=== PATIENT | male | born 1990 | race Caucasian/White ===

== ENCOUNTER 2016-12-24 07:37 | Emergency (ER) | payer BC, OTHER ==
[~2016-12-24] VITALS: Ht 175.3 cm; Wt 72.5 kg
[2016-12-24 07:39] VITALS: TEMP 36.7; Ht 175.3 cm; Wt 72.5 kg
--- NOTE | 2016-12-24 08:04 | EMERGENCY ROOM VISIT NOTE ---
History Report prepared by [facility]: Peri Weller Under the Supervision of: Dr. Wally Christopher M.D. First contact with patient: 07:46 Chief Complaint: OTHER COMPLAINT Stated Complaint: BLURRED/DOUBLE VISION History of Present Illness The patient is a 26 year old male who presents to the Emergency Room with complaints of constant visual symptoms beginning last night. He describes blurry and double vision since last night. He went to bed and woke up with the same symptoms. He states that they have improved slightly throughout the morning , but he is still having double vision. The patient notes that his symptoms resolve if he closes either eye - it does not matter which eye he closes. He has never experienced these symptoms before. He wears glasses and states that he has these symptoms with or without his glasses. He denies any recent changes to his glasses prescription. The patient denies any recent trauma or injury to his head. He also denies any recent illness or increase in alcohol consumption. He denies any drug use. The patient reports that for the past 2-3 years he has had "low energy." He has been more fatigued than usual lately and notes that yesterday he put off cutting the grass, which is very unusual for him. He has a family history of MS. The patient states that his mother and grandmother have MS and state that their symptoms began with similar visual symptoms. Source of History: patient, spouse/significant other Onset: last night Position: eye (bilateral) Quality: other (blurry/double) Timing: constant Modifying Factors (Relieving): other (closing one eye) Associated Symptoms: + fatigue Review of Systems All systems have been listed, reviewed, and are negative other than those previously mentioned. Please see Additional Medical History Sheet. Past Medical & Surgical Medical Problems: (1) No significant active problems Family History FHx: multiple sclerosis Social History Smoking Status: Never Smoker Alcohol Use: occasionally Marital Status: Housing Status: lives with significant other Occupation Status: employed Current/Historical Medications Miscellaneous Medications None (Patient States No Home Meds) Allergies Coded Allergies: No Known Allergies (Unverified , 12/24/16) Physical Exam Vital Signs Date Time Temp Pulse Resp B/P (MAP) Pulse Ox O2 Delivery O2 Flow Rate FiO2 12/24/16 10:55 22 15 110/71 99 Room Air 12/24/16 08:52 50 15 119/63 100 Room Air 12/24/16 07:39 36.7 66 18 130/85 99 Room Air Physical Exam GENERAL: Patient awake, alert, oriented x 3. Patient follows commands. Patient does not appear toxic. Patient is adequately hydrated and well- nourished. SKIN: No erythema, pallor, cyanosis or rash HEENT: Normal head, pupils equal, reactive to light and accommodation. Small scar on his left TM. Oral cavity and posterior pharynx appear normal. Neck: Without adenopathy, no neck vein distention. LUNGS: Clear to auscultation. No wheezes, no rales, no rhonchi. HEART: No murmurs. No gallops. No rubs ABDOMEN: No masses, no rebound, no hepatomegaly or splenomegaly. EXTREMITIES: No signs of trauma or infection. NEUROLOGIC: Cranial nerves II-XII within normal limits. No gross motor sensory function deficits. Medical Decision & Procedures ER Provider Diagnostic Interpretation: Radiology results as stated below per my review and radiologist interpretation: BRAIN COMBO FOR MS HISTORY: Mental status change diplopia MS? TECHNIQUE: Multiplanar multisequence MRI of the brain was performed both before and after the intravenous administration of contrast. COMPARISON STUDY: None. FINDINGS: There are no areas of restricted diffusion to suggest acute infarction. The midline structures are intact. The paranasal sinuses are clear. The mastoid air cells are clear. The ventricles and sulci are within normal limits for age. There is no mass, hematoma, midline shift. The major vascular flow-voids at the skull base are well maintained. Postcontrast sequences show no areas of abnormal enhancement. There is a small focus of increased signal right frontal lobe and right periventricular location. No additional foci are identified. There are no significant foci of increased signal within the optic radiations. Sella and parasellar region are within normal limits. Internal auditory canals are symmetric. IMPRESSION: Small focus of increased signal right frontal lobe. 2. Study is otherwise negative 3. No significant evidence for a demyelinating disorder The above report was generated using voice recognition software. It may contain grammatical, syntax or spelling errors. Electronically signed by: Shady Sullivan M.D. 12/24/2016 10:43 AM Dictated Date/Time: 12/24/2016 10:38 AM Laboratory Results 12/24/16 08:05 12/24/16 08:05 Test 12/24/16 08:05 Red Blood Count 4.92 M/uL (4.7-6.1) Mean Corpuscular Volume 87.8 fL (80-100) Mean Corpuscular Hemoglobin 31.9 pg (25-34) Mean Corpuscular Hemoglobin Concent 36.3 g/dl (32-36) RDW Standard Deviation 39.7 fL (36.4-46.3) RDW Coefficient of Variation 12.5 % (11.5-14.5) Mean Platelet Volume 9.5 fL (7.4-10.4) Anion Gap 3.0 mmol/L (3-11) Est Creatinine Clear Calc Drug Dose 115.8 ml/min Estimated GFR () 125.8 Estimated GFR (Non- 108.5 BUN/Creatinine Ratio 14.0 (10-20) Calcium Level 9.1 mg/dl (8.5-10.1) Troponin I < 0.015 ng/ml (0-0.045) Laboratory results as stated above per my review. ECG Indication: other Rate (beats per minute): 58 Rhythm: sinus bradycardia Findings: no acute ischemic change, no ectopy, other (rightward axis) ED Course 0746: Past medical records reviewed. The patient was evaluated in room B2. A complete history and physical examination was performed. 1055: I reassessed the patient at this time. He is feeling better and resting comfortably. I discussed the results and treatment plan with the patient. I answered all pertaining questions that he had. He expressed understanding and verbalized agreement. The patient will be discharged home. Medical Decision Differential diagnoses includes diplopia, metabolic disorder, MS, neoplasm. 26-year-old male here with diplopia. There is a strong family history of MS and both the patient and his are concerned about that disease process. Multiple labs and imaging were performed. Please see above. At this time, there appears to be no evidence for MS although that diagnosis could be elusive. I do not believe the patient requires admission but I would like the patient be followed up by his family physician and possibly a neurologist if symptoms persist. The patient was encouraged to avoid driving while he has any visual problem. The patient's potassium is slightly low. He was instructed to increase potassium in his diet. Medication Reconcilliation Current Medication List: was personally reviewed by me Blood Pressure Screening Patient's blood pressure: Normal blood pressure Impression Primary Impression: Diplopia Additional Impression: Hypokalemia Scribe Attestation The scribe's documentation has been prepared under my direction and personally reviewed by me in its entirety. I confirm that the note above accurately reflects all work, treatment, procedures, and medical decision making performed by me. Departure Information Dispostion Home / Self-Care Referrals No Doctor, Assigned (PCP) Patient Instructions ED Diet High Potassium, [facility] Additional Instructions Follow-up with your family physician within the next 7 days. Return here sooner if your double vision gets worse. Do not drive if you have double vision. Increase potassium in your diet. Problem Qualifiers
[2016-12-24 08:22] LABS: HEMATOCRIT 43.2 % (42-52); MEAN CELL VOLUME 87.8 fL (80-100); MEAN CORPUSCULAR HEMOGLOBIN 31.9 pg (25-34); MEAN CORPUSCULAR HGB CONC 36.3 g/dl (32-36); MEAN PLATELET VOLUME 9.5 fL (7.4-10.4); PLATELET COUNT 265 K/uL (130-400); RED BLOOD COUNT 4.92 M/uL (4.7-6.1); WHITE BLOOD COUNT 7.03 K/uL (4.8-10.8)
[2016-12-24 08:35] LABS: BLOOD UREA NITROGEN 13 mg/dl (7-18); CALCIUM 9.1 mg/dl (8.5-10.1); CARBON DIOXIDE 32 mmol/L (21-32); CHLORIDE 105 mmol/L (98-107); CREATININE 0.95 mg/dl (0.60-1.40); GLUCOSE 73 mg/dl (70-99); POTASSIUM 3.3 mmol/L (3.5-5.1); SODIUM 140 mmol/L (136-145)
--- NOTE | 2016-12-24 10:45 | DIAGNOSTIC IMAGING REPORT ---
BRAIN COMBO FOR MS HISTORY: Mental status change diplopia MS? TECHNIQUE: Multiplanar multisequence MRI of the brain was performed both before and after the intravenous administration of contrast. COMPARISON STUDY: None. FINDINGS: There are no areas of restricted diffusion to suggest acute infarction. The midline structures are intact. The paranasal sinuses are clear. The mastoid air cells are clear. The ventricles and sulci are within normal limits for age. There is no mass, hematoma, midline shift. The major vascular flow-voids at the skull base are well maintained. Postcontrast sequences show no areas of abnormal enhancement. There is a small focus of increased signal right frontal lobe and right periventricular location. No additional foci are identified. There are no significant foci of increased signal within the optic radiations. Sella and parasellar region are within normal limits. Internal auditory canals are symmetric. IMPRESSION: Small focus of increased signal right frontal lobe. 2. Study is otherwise negative 3. No significant evidence for a demyelinating disorder The above report was generated using voice recognition software. It may contain grammatical, syntax or spelling errors. Electronically signed by: Shady Sullivan M.D. 12/24/2016 10:43 AM Dictated Date/Time: 12/24/2016 10:38 AM
[2016-12-24 10:55] VITALS: BP 110/71; PULSE 22; O2SAT 99
== END 2016-12-24 11:17 | disposition home or self-care (01) ==
LOC: C.EDB 07:38
DX: H53.2 Diplopia (principal); H53.8 Other visual disturbances; E87.6 Hypokalemia